=== PATIENT | male | born 1965 | race Caucasian/White ===

== ENCOUNTER 2021-09-10 13:39 | Emergency (ER) | payer OTHER ==
[~2021-09-10 13:39] MED LIST: Iopamidol 370 76% 100 ML VIAL ONE
[2021-09-10] MEDS ORDERED: Morphine 4 MG/ML VIAL ONE (14:45)
[2021-09-10] MEDS ORDERED: Ondansetron PF 4 MG/2 ML Vial ONE (14:45)
[2021-09-10 14:58] LABS: #Basophils 0.1 10x3/uL (0.0-0.2); #Eosinphils 0.2 10x3/uL (0.0-0.5); #Monocytes 0.7 10x3/uL (0.0-1.1); %Basophils 1.1 % (0.0-2.0); %Eosinophils 3.8 % (0.0-6.0); %Lymphocytes 33.4 % (18.0-47.0); %Monocytes 14.1 % (0.0-10.0); Hemoglobin 11.6 g/dL (13.5-17.5); Mean Corpuscular HGB CONC 34.9 g/dL (32.0-36.0); Mean Corpuscular Volume 88.8 fl (81.2-95.1); Mean Platelet Volume 10.4 fl (7.4-10.4); Platelet Count 223 10x3/uL (150-450); RBC Distribution Width 13.9 % (11.5-14.5); Red Blood Cell (RBC) Count 3.74 10x6/uL (4.32-5.72); White Blood Cell (WBC) Count 4.8 10x3/uL (3.5-10.5)
[2021-09-10 14:59] LABS: #Neutrophils 2.3 10x3/uL (1.5-8.4); %Neutrophils 47.6 % (40.0-75.0)
[2021-09-10 15:00] LABS: ALT (SGPT) 18 U/L (8-55); AST (SGOT) 28 U/L (5-34); Alkaline Phosphatase 67 U/L (40-110); Anion Gap 12 mmol/L (10-20); BUN (Urea Nitrogen) 17 mg/dL (8.4-25.7); Bilirubin, Total 0.8 mg/dL (0.2-1.2); Calc. Creatinine Clearance 0 mL/min (70-130); Calcium 9.5 mg/dL (7.8-10.44); Carbon Dioxide 23 mmol/L (22-29); Chloride 108 mmol/L (98-107); Globulin 2.5 g/dL (2.4-3.5); Glucose 110 mg/dL (70-105); Potassium 4.4 mmol/L (3.5-5.1); Protein, Total 6.5 g/dL (6.0-8.3); Sodium 139 mmol/L (136-145)
[2021-09-10 15:11] LABS: D-Dimer Test 1.72 mg/L FEU (0.19-0.50); PTT 23.8 sec (22.0-33.0); Prothrombin Time 10.8 sec (9.5-12.1)
[2021-09-10 15:23] LABS: CKMB 3.7 ng/mL (0-6.6)
[2021-09-10 15:45] LABS: SARS-CoV-2 NAA Rapid Test Not Detected (NotDetected)
== END 2021-09-10 19:35 | disposition short-term general hospital (02) ==
LOC: EEVIPCON 13:39 → CSHERS 13:39
DX: R32 Unspecified urinary incontinence (principal); M54.50 Low back pain, unspecified; R77.8 Other specified abnormalities of plasma proteins; Z20.822 Contact with and (suspected) exposure to COVID-19
CPT/HCPCS: 71275; 80053; 82553; 83605; 84484; 85025; 85379; 85610; 85652; 85730; 86140; 87040; 93005; 96374; 96375; J2270; J2405; Q9967